=== PATIENT | female | born 1995 | race Caucasian/White ===

== ENCOUNTER 2024-12-30 19:32 | Emergency (ER) | payer OTHER ==
[~2024-12-30] VITALS: Ht 157.5 cm; Wt 65.5 kg
[~2024-12-30 19:32] MED LIST: DSS100 PO; FERR325T27 PO; IBUP-1492 PO; PERCT PO; PREN1TAB80 PO
[2024-12-30 20:03] VITALS: BP 118/79; PULSE 67; RESP 15; TEMP 98.5; O2SAT 99
[2024-12-31] MEDS: BACITRACIN 0.9 GM PACKET OINTMENT TP ONE (00:07)
[2024-12-31] MEDS: LIDOCAINE 1% 10 ML VIAL SQ ONE (00:08)
[2024-12-31] MEDS: PERTUSS(ACELL),DIPH,TET/PF 0.5 ML SYRINGE [ADULT] IM. ONE (00:46)
== END 2024-12-31 00:50 | disposition home or self-care (01) ==
LOC: EMS 19:33
DX: S61.012A Laceration without foreign body of left thumb without damage to nail, initial encounter (principal); Z90.49 Acquired absence of other specified parts of digestive tract; Z79.899 Other long term (current) drug therapy; W26.0XXA Contact with knife, initial encounter; Y93.89 Activity, other specified; Y92.000 Kitchen of unspecified non-institutional (private) residence as the place of occurrence of the external cause; Y99.8 Other external cause status
CPT/HCPCS: 99283; 12002; 90715; 90471; J3490